=== PATIENT | female | born 1965 | race Caucasian/White ===

== ENCOUNTER 2018-06-20 09:38 | Day surgery (SDC) | payer BC ==
[2018-06-19 12:04] VITALS: BMI 37.4
[2018-06-20] MEDS ORDERED: Fentanyl 100 MCG/2 ML VIAL ONE ×3 (12:05→15:12)
[2018-06-20] MEDS ORDERED: Midazolam HCl 2 mg/2 ml Vial ONE (12:05)
[2018-06-20] MEDS ORDERED: Lidocaine 1% w/Epinephrine 1:100K 30 ML VIAL ONE (12:53)
--- NOTE | 2018-06-20 14:17 | OP ---
DATE OF PROCEDURE: 06/20/2018 PREOPERATIVE DIAGNOSIS: Thyroglossal duct cyst. POSTOPERATIVE DIAGNOSIS: Thyroglossal duct cyst. PROCEDURE PERFORMED: 1. Excision of thyroglossal duct cyst. 2. Robinson procedure. PROCEDURE IN DETAIL: After consent was obtained, the patient was identified, brought to the operatin g room and placed on the operating table in supine position. General endotracheal anesthesia was obt ained. The patient was prepped and draped and positioned for surgery. An incision was made in a mony ural skin crease over the lesion. We then meticulously dissected down through the skin, subcutaneous tissues and platysma and in the subplatysmal area, we encountered the cyst and meticulously dissecte d the cyst from the surrounding tissues while being careful to keep the cyst intact. Ultimately, we dissected it all the way back to the hyoid bone and exposed the mid portion of the hyoid bone, which was excised. We then were able to remove the adhesive muscle and soft tissue and identified the duct of the thyroglossal duct cyst through the mid portion of the hyoid bone. This was then suture ligat ed with 2-0 silk. We then closed the wound in layers and the skin. The patient was awakened, extuba maddi and taken to recovery room where she remained in stable condition prior to discharge home. Steri le dressing was applied.
[2018-06-20] MEDS ORDERED: Morphine 2 MG/ML SYRINGE ONE ×2 (15:03→15:27)
[2018-06-20] MEDS ORDERED: Hydrocodone-Acetamin 15 ML UDCUP ONE ×2 (16:05)
== END 2018-06-20 17:07 | disposition home or self-care (01) ==
LOC: SDC 09:38
PROVIDERS: ATTEND Specialist
PROC: 0WB60ZX Excision of Neck, Open Approach, Diagnostic (ICD-10-PCS; principal; 2018-06-20)
DX: Q89.2 Congenital malformations of other endocrine glands (principal); E11.9 Type 2 diabetes mellitus without complications; Z79.84 Long term (current) use of oral hypoglycemic drugs; Z79.899 Other long term (current) drug therapy
CPT/HCPCS: 36415; 85014; 88305; 93005; 93010; 96374; J2001; J2250; J2270; J3010

== ENCOUNTER 2018-12-13 17:31 | Emergency (ER) | payer BC | END 2018-12-13 19:01 | disposition home or self-care (01) | LOC: ERS 17:31 | DX: L50.9 Urticaria, unspecified (principal); E11.9 Type 2 diabetes mellitus without complications | CPT/HCPCS: 99282 ==

== ENCOUNTER 2019-03-10 08:41 | Outpatient (CLI) | payer BC ==
--- NOTE | 2019-03-10 10:01 | MMO ---
Bilateral MAMMO Bilat Screen [facility]. CLINICAL HISTORY: Patient is 53 years old and is seen for screening. The patient has no family history of breast cancer. The patient has no personal history of cancer. VIEWS: The views performed were: bilateral craniocaudal with tomosynthesis; bilateral mediolateral oblique with tomosynthesis; and right mediolateral oblique. FILMS COMPARED: The present examination has been compared to prior imaging studies performed at [facility] on 05/17/2006, 06/01/2006 and 07/20/2014. MAMMOGRAM FINDINGS: There are scattered fibroglandular densities. There are no suspicious masses, suspicious calcifications, or new areas of architectural distortion. IMPRESSION: THERE IS NO MAMMOGRAPHIC EVIDENCE OF MALIGNANCY. A ROUTINE FOLLOW-UP MAMMOGRAM IN 1 YEAR IS RECOMMENDED. THE RESULTS OF THIS EXAM WERE SENT TO THE PATIENT. ACR BI-RADS Category 1 - Negative MAMMOGRAPHY NOTE: 1. A negative mammogram report should not delay a biopsy if a dominant of clinically suspicious mass is present. 2. Approximately 10% to 15% of breast cancers are not detected by mammography. 3. Adenosis and dense breasts may obscure an underlying neoplasm. Reported by: JAREN COLLINS MD Electonically Signed: [id number]
== END 2019-03-10 08:42 | disposition home or self-care (01) ==
LOC: BICMAMMO 08:41
PROVIDERS: ATTEND Family Medicine
DX: Z12.31 Encounter for screening mammogram for malignant neoplasm of breast (principal)
CPT/HCPCS: 77063; 77067

== ENCOUNTER 2019-08-10 21:10 | Emergency (ER) | payer BC ==
[2019-08-10 21:51] LABS: Bacteria/HPF None Seen HPF (None Seen); Bilirubin Negative (Negative); Blood, Urine 2+ (Negative); Clarity Clear (Clear); Glucose, Urine (Dipstick) Normal (Negative); Leukocyte Negative Leu/uL (Negative); Nitrite Negative (Negative); Protein, Urine (Dipstick) 20 mg/dL (Neg-Trace); RBC/HPF Greater than 50 HPF (0-3); Squamous Epithelial 0-3 HPF (0-3); Urobilinogen Normal mg/dL (Less than 2); WBC/HPF 0-3 HPF (0-3)
[2019-08-10] MEDS ORDERED: Ketorolac Tromethamine 30 MG/ML VIAL ONE (22:23)
[2019-08-10] MEDS ORDERED: Morphine 4 MG/ML VIAL ONE (22:23)
[2019-08-10] MEDS ORDERED: Ondansetron PF 4 MG/2 ML Vial ONE (22:23)
[2019-08-10 22:38] LABS: #Eosinphils 0.1 thou/uL (0.0-0.7); #Lymphocytes 1.7 thou/uL (1.20-3.40); #Monocytes 0.6 thou/uL (0.11-0.59); #Neutrophils 8.2 thou/uL (1.40-6.50); %Basophils 0.1 % (0.0-1.0); %Eosinophils 0.8 % (0.0-10.0); %Lymphocytes 16.1 % (21.0-51.0); %Monocytes 5.5 % (0.0-10.0); %Neutrophils 77.4 % (42.0-75.0); Hemoglobin 12.1 g/dL (12.0-16.0); Mean Corpuscular HGB CONC 33.4 g/dL (32.0-36.0); Mean Corpuscular Volume 89.7 fL (78.0-98.0); Mean Platelet Volume 7.7 fL (7.4-10.4); Platelet Count 260 thou/uL (130-400); RBC Distribution Width 11.8 % (11.5-14.5); Red Blood Cell (RBC) Count 4.04 mill/uL (4.20-5.40); White Blood Cell (WBC) Count 10.6 thou/uL (4.8-10.8)
--- NOTE | 2019-08-10 22:53 | CT ---
CT OF THE ABDOMEN AND PELVIS WITHOUT IV CONTRAST INDICATION: Right lower back pain COMPARISON: None FINDINGS: This examination is limited for the evaluation of solid organs and vascular structures due to the lac k of intravenous contrast. ABDOMEN: Lung bases: Clear Liver: No focal lesion. Gallbladder: Normal appearing. Pancreas: Normal. Adrenal glands: Normal. Spleen: Normal. Kidneys and ureters: There is mild right hydronephrosis. There is a 2 mm stone within the mid to prox imal right ureter. There are 2 additional 1 to 2 mm stones in involving inferior pole of the right kidney. There is a 1 to 2 mm stone involving the right mid kidney and superior pole right kidney. The re are 1 to 2 mm stone seen within the inferior pole left kidney and left mid kidney. There is an exophytic 1 cm cyst off the posterior aspect of the left mid kidney. Vasculature: Normal. Lymph nodes:No lymphadenopathy. Free fluid in abdomen:No free fluid is evident. PELVIS: Small and large bowel: Normal Appendix:Normal Bladder: Partially decompressed Rectal and perirectal soft tissues:Normal. Reproductive structures: Normal. Free fluid in pelvis: No free fluid is evident. Lymphadenopathy pelvis: No lymphadenopathy is evident. 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 There is scattered degener ative and osteoarthritic changes. Soft tissues:Normal. IMPRESSION: 1. 2 mm stone within the mid proximal right ureter causing mild right hydronephrosis. 2. Bilateral nephrolithiasis. 3. Left renal cyst
[2019-08-10 23:00] LABS: ALT (SGPT) 20 U/L (8-55); AST (SGOT) 20 U/L (5-34); Albumin 4.1 g/dL (3.5-5.0); Alkaline Phosphatase 98 U/L (40-110); Anion Gap 16 mmol/L (10-20); BUN (Urea Nitrogen) 16 mg/dL (9.8-20.1); Bilirubin, Total 0.3 mg/dL (0.2-1.2); Calc. Creatinine Clearance 0 mL/min (70-130); Calcium 9.7 mg/dL (7.8-10.44); Carbon Dioxide 24 mmol/L (22-29); Chloride 104 mmol/L (98-107); Estimated GFR-MDRD 66; Globulin 3.6 g/dL (2.4-3.5); Glucose 143 mg/dL (70-105); Potassium 4.1 mmol/L (3.5-5.1); Protein, Total 7.7 g/dL (6.0-8.3); Sodium 140 mmol/L (136-145)
[2019-08-10] MEDS ORDERED: HYDROcodone/Acetaminophen 10/325 mg Tablet ONE (23:36)
== END 2019-08-10 23:50 | disposition home or self-care (01) ==
LOC: ERS 21:10
DX: N13.2 Hydronephrosis with renal and ureteral calculous obstruction (principal); N21.1 Calculus in urethra
CPT/HCPCS: 74176; 80053; 81003; 81015; 85025; 96361; 96374; 96375; J1885; J2270; J2405

== ENCOUNTER 2020-06-28 08:33 | Outpatient (CLI) | payer BC ==
--- NOTE | 2020-06-28 09:09 | RAD ---
XR Ankle Lt 3 View STANDARD INDICATION: Ankle injury. COMPARISON: None. FINDINGS: Bones: Intact. Ankle mortise: Symmetric. Talar Dome: Intact. Subtalar joint: Normal. Visualized hindfoot: Normal. Periarticular soft tissues: Normal. IMPRESSION: 1. No acute fracture or subluxation demonstrated.
--- NOTE | 2020-06-28 09:16 | RAD ---
XR Ankle Rt 3 View STANDARD INDICATION: Right ankle injury COMPARISON: None. FINDINGS: Bones: Intact. Ankle mortise: Mild tibiotalar joint osteoarthrosis Talar Dome: Intact. Subtalar joint: Normal. Visualized hindfoot: There is moderate enthesopathic change off the plantar and posterior calcaneus. Periarticular soft tissues: There is diffuse soft tissue swelling of the lower right leg, ankle and h indfoot IMPRESSION: 1. No acute fracture or subluxation demonstrated.
--- NOTE | 2020-06-28 09:17 | RAD ---
XR Shoulder Rt 3 View STANDARD: 06/28/2020 8:50 AM CLINICAL INDICATION: Right shoulder pain. COMPARISON: None. FINDINGS: Bones: There is mild enthesopathic change off the right greater tuberosity and the inferior aspect of the anterior acromion. Glenohumeral joint: There is mild glenohumeral joint osteoarthrosis. AC joint: There is mild AC joint osteoarthrosis. Visualized lung: Clear. Soft tissues: Within normal limits. IMPRESSION: No acute osseous abnormality.
--- NOTE | 2020-06-28 09:17 | RAD ---
XR Shoulder Lt 3 View STANDARD: 06/28/2020 8:50 AM CLINICAL INDICATION: Left shoulder pain. COMPARISON: None. FINDINGS: Bones: There is enthesopathic change off the left greater tuberosity. Glenohumeral joint: Normal alignment. AC joint: There is moderate left AC joint osteophytosis. Visualized lung: Clear. Soft tissues: Within normal limits. IMPRESSION: No acute osseous abnormality.
== END 2020-06-28 08:34 | disposition home or self-care (01) ==
LOC: BICRAD 08:33
PROVIDERS: ATTEND Family Medicine
DX: M25.50 Pain in unspecified joint (principal); E03.9 Hypothyroidism, unspecified
CPT/HCPCS: 36415; 84439; 84443; 84481

== ENCOUNTER 2023-07-24 08:30 | Emergency (ER) | payer SELFPAY ==
[2023-07-24] MEDS ORDERED: Oxymetazoline HCl 0.05% (30 ML BOT) ONE (09:11)
[2023-07-24 09:23] LABS: #Eosinphils 0.2 thou/uL (0.0-0.7); #Monocytes 0.4 thou/uL (0.11-0.59); #Neutrophils 3.5 thou/uL (1.40-6.50); %Basophils 0.5 % (0.0-1.0); %Eosinophils 2.4 % (0.0-10.0); %Lymphocytes 34.6 % (21.0-51.0); %Monocytes 5.8 % (0.0-10.0); %Neutrophils 56.4 % (42.0-75.0); Hematocrit 35.3 % (36.0-47.0); Hemoglobin 11.5 g/dL (12.0-16.0); Mean Corpuscular HGB CONC 32.6 g/dL (32.0-36.0); Mean Corpuscular Hemoglobin 28.8 pg (27.0-31.0); Mean Corpuscular Volume 88.3 fl (78.0-98.0); Mean Platelet Volume 10.1 fL (7.4-10.4); Platelet Count 250 10x3/uL (130-400); RBC Distribution Width 13.2 % (11.5-14.5); White Blood Cell (WBC) Count 6.2 10x3/uL (4.8-10.8)
[2023-07-24 09:46] LABS: ALT (SGPT) 47 U/L (8-55); AST (SGOT) 75 U/L (5-34); Albumin 4.2 g/dL (3.5-5.0); Alkaline Phosphatase 93 U/L (40-110); Anion Gap 16 mmol/L (10-20); BUN (Urea Nitrogen) 13 mg/dL (9.8-20.1); Bilirubin, Total 0.5 mg/dL (0.2-1.2); Calc. Creatinine Clearance 0 mL/min (70-130); Calcium 9.9 mg/dL (7.8-10.44); Carbon Dioxide 23 mmol/L (22-29); Chloride 103 mmol/L (98-107); Estimated GFR 89; Globulin 3.6 g/dL (2.4-3.5); Glucose 152 mg/dL (70-105); Protein, Total 7.8 g/dL (6.0-8.3); Sodium 138 mmol/L (136-145)
== END 2023-07-24 09:52 | disposition home or self-care (01) ==
LOC: ERS 08:30
DX: R04.0 Epistaxis (principal)
CPT/HCPCS: 36415; 80053; 85025; 99283

== ENCOUNTER 2024-03-17 08:03 | Day surgery (SDC) | payer BC ==
[2024-03-14 13:38] VITALS: BMI 35.5
[2024-03-17] MEDS ORDERED: Midazolam HCl 2 mg/2 ml Vial ONE (10:17)
[2024-03-17] MEDS ORDERED: PROPOFOL 200 MG/20 ML VIAL ONE (10:55)
[2024-03-17] MEDS ORDERED: Lidocaine 1% PF 5 ML VIAL ONE (10:55)
== END 2024-03-17 12:09 | disposition home or self-care (01) ==
LOC: SDC 08:03
PROVIDERS: ATTEND Surgery
PROC: 0DJD8ZZ Inspection of Lower Intestinal Tract, Via Natural or Artificial Opening Endoscopic (ICD-10-PCS; principal; 2024-03-17)
DX: Z12.11 Encounter for screening for malignant neoplasm of colon (principal); K64.8 Other hemorrhoids; E11.9 Type 2 diabetes mellitus without complications; E78.00 Pure hypercholesterolemia, unspecified; Z79.84 Long term (current) use of oral hypoglycemic drugs; Z79.899 Other long term (current) drug therapy; Z98.890 Other specified postprocedural states
CPT/HCPCS: J2250; J2704